=== PATIENT | male | born 1995 | race African-American/Black ===

== ENCOUNTER 2019-01-01 02:28 | Emergency (ER) | payer OTHER ==
[~2019-01-01] VITALS: Ht 182.9 cm; Wt 96.8 kg
[2019-01-01 04:02] LABS: INFLUENZA A AMPLIFICATION NEGATIVE (NEGATIVE); INFLUENZA B AMPLIFICATION NEGATIVE (NEGATIVE)
[2019-01-01] MEDS ORDERED: PRED20TA PO (04:09)
[2019-01-01] MEDS ORDERED: ZITHTAB PO (04:09)
[2019-01-01 04:26] VITALS: BP 123/89
--- NOTE | 2019-01-01 06:46 | REP ---
Clinical: Cough . Comparison: None . Technique: PA and lateral. Findings: The mediastinum and cardiac silhouette are normal. The lung herrera are clear and without acute consolidation, effusion, or pneumothorax. The skeletal structures are intact and normal. Impression: 1. No acute cardiopulmonary process. Electronically Signed by Yevgeniy Griffith MD 01/01/2019 06:38 A
== END 2019-01-01 04:34 | disposition home or self-care (01) ==
LOC: M ED 02:28
DX: J06.9 Acute upper respiratory infection, unspecified (principal); J20.9 Acute bronchitis, unspecified

== ENCOUNTER 2019-01-16 08:14 | Emergency (ER) | payer OTHER ==
[~2019-01-16] VITALS: Ht 182.9 cm; Wt 95.5 kg
[~2019-01-16 08:14] MED LIST: PRED20TA PO; ZITHTAB PO
--- NOTE | 2019-01-16 08:55 | REP ---
Left ring finger series: Four views. History: Deformity and pain. Findings: Four views of the left ring finger demonstrate a obliquely oriented somewhat comminuted fracture of the middle phalanx of the ring finger with slight displacement and override. There is associated soft-tissue swelling. No opaque foreign body. Impression: Comminuted obliquely oriented middle phalangeal fracture left ring finger. Electronically Signed by Joesph Hughes MD 01/16/2019 08:47 A
[2019-01-16 09:59] VITALS: BP 125/69
== END 2019-01-16 10:22 | disposition home or self-care (01) ==
LOC: M ED 08:14
DX: S62.625A Displaced fracture of middle phalanx of left ring finger, initial encounter for closed fracture (principal); W22.8XXA Striking against or struck by other objects, initial encounter; Y92.321 Football field as the place of occurrence of the external cause; Y93.61 Activity, american tackle football

== ENCOUNTER 2019-05-08 12:11 | Inpatient (IN) | payer OTHER ==
[~2019-05-08] VITALS: Ht 185.4 cm; Wt 94.5 kg
[2019-05-08 12:49] LABS: HEMATOCRIT 44.4 % (42.0-52.0); HEMOGLOBIN 15.2 g/dl (13.5-17.5); MEAN CORPUSCULAR HGB CONC 34.2 g/dl (32.0-36.5); MEAN CORPUSCULAR VOLUME 87.6 fl (80.0-96.0); PLATELET COUNT, AUTOMATED 296 10^3/uL (150-450); RED BLOOD COUNT 5.07 10^6/uL (4.30-6.10)
[2019-05-08 13:18] LABS: AMPHETAMINES LEVEL URINE NEGATIVE (NEGATIVE); BARBITURATES URINE NEGATIVE (NEGATIVE); BENZODIAZEPINES URINE NEGATIVE (NEGATIVE); CANNABINOIDS URINE POSITIVE (NEGATIVE); COCAINE METABOLITE URINE NEGATIVE (NEGATIVE); METHADONE URINE NEGATIVE (NEGATIVE); OPIATES URINE NEGATIVE (NEGATIVE); PHENCYCLIDINE URINE NEGATIVE (NEGATIVE)
[2019-05-08 13:24] LABS: ACETAMINOPHEN LEVEL < 2.0 UG/ML (10.0-30.0); ALT/SGPT 36 U/L (12-78); BILIRUBIN,DIRECT 0.3 MG/DL (0.0-0.2); BILIRUBIN,TOTAL 1.2 MG/DL (0.2-1.0); BLOOD UREA NITROGEN 8 MG/DL (7-18); CALCIUM LEVEL 9.2 MG/DL (8.5-10.1); CARBON DIOXIDE LEVEL 30 MEQ/L (21-32); CHLORIDE LEVEL 105 MEQ/L (98-107); CREATININE FOR GFR 1.27 MG/DL (0.70-1.30); ETHYL ALCOHOL (ETHANOL) < 0.003 % (0.000-0.010); GLOMERULAR FILTRATION RATE > 60.0 (>60); GLUCOSE, FASTING 91 MG/DL (70-100); POTASSIUM SERUM 3.7 MEQ/L (3.5-5.1); SALICYLATE LEVEL < 1.7 MG/DL (5.0-30.0); SODIUM LEVEL 140 MEQ/L (136-145); THYROID STIMULATING HORMONE 0.991 uIU/ML (0.358-3.740); TOTAL PROTEIN 7.7 GM/DL (6.4-8.2)
[2019-05-08] MEDS ORDERED: ACETAMINOPHEN TAB 650MG DOSE (2X325MG) PO PRN (14:00)
[2019-05-08] MEDS ORDERED: MAALOX 30 ML SUSP *UDC PO PRN (14:00)
[2019-05-08] MEDS ORDERED: MOM 30ML SUSPENSION UDC PO PRN (14:00)
[2019-05-08] MEDS ORDERED: traZODone 50 MG TAB PO PRN (14:00)
[2019-05-08 16:45] VITALS: BP 168/95
[2019-05-09 06:24] VITALS: BP 98/60
--- NOTE | 2019-05-09 10:44 | MHHPEPDOC ---
General Date Of Admission: May 08, 2019 Legal Status: 9.39 Chief Complaint "I was contemplating many ways on how to kill myself this morning." History of Present Illness HISTORY OF THE PRESENT ILLNESS: Patient is a 23 -year-old , AD, male, with a history of substance abuse who was brought to ED after he was seen at [place] [facility] as a walk-in endorse SI with multiple plans. Pt stated in ED "I was contemplating many ways on how to kill myself this morning." Per ED, pt reported multiple marital stressor with his which escalated the morning of his admission causing them to have an argument. Per pt to the ED, stated his apparently threaten pt on how his infidelity in their marriage would affect his career in the and how it would impact him financially. Pt stated in the ED that he panicked and felt "there was no point of living any longer." Pt stated in the Ed that he felt his was purposely trying to damage his career out of revenge for him cheating on her causing him to go to [facility] as a walk-in for help. Pt endorsed SI via multiple plans that included drunk driving, hanging himself, driving vehicle off the road, or shooting himself if he could get assess to a firearm per [facility] to ED. Once in the ED pt stated he felt beeter and would like to be d/c home to his and daughter. Psychiatric Review of Systems Depression (2 or more weeks): depressed mood, suicidal thoughts Dayana (4 or more days of): denies Psychosis: denies PTSD: denies Anxiety: situational anxiety, stressor related anxiety Anxiety/ 6 months or more of: irritability Past Psychiatric History Previous Psychiatric Diagnosis: cannabis use d/o Previous Psychiatric Admissions: denies Suicide Attempts: denies Psychiatric Follow-up: [facility] Psychiatric medications: denies Past Medical History Medical Problems surgery to hand in past Head Injury: No Seizures: No Hospitalizations: No Surgeries: Yes Family Medical/Psychiatric HX Medical Problems noncontributory Psychiatric Disorders: No Addiction: No Suicide Attemps/Completions: No Addiction History nicotine, other (utox pos cannabis) Social History Childhood: born and raised in [place], [place] in a 2 parent home with 4 siblings. Good childhood. Abuse/Trauma:denies Current Living Situation: lives [place] [address] with his and 8mo old daughter Education: high school grad and some college Employment: [employer] Social Support: family, Legal: denies Marital: with an 8mo only daughter Mental Status Examination General Appearance: well groomed, appears stated age, hospital scubs/clothing Build: average Demeanor: average Eye Contact: average Activity: average Speech: clear, spontaneous, normal volume, reg/rate,rhythm,volume Mood: euthymic Mood "better" Affect: full, appropriate, congruent Thought Process: logical/linear Thought Content (Delusions): none reported Thought Content (Other): none reported Thought Content (Aggressive): none reported Perception (Hallucinations): none reported Perception (Other): none reported Cognition (Impairment of): none reported Cognition(Intelligence Est.): average Oriented: Awake, Alert, Oriented times three Insight: good Judgment: Good Psychosis: Denies Diagnoses Adjustment d/o with depressed mood cannabis use d/o A-FIB/CHADSVASC A-FIB History Current/History of A-Fib/PAF?: No Assessment Pt seen during treatment team this morning stating he feels much better today and is hopeful to go home. Pt again discussed this marital stressors and his 's threats to him that caused him to panic and go to [facility] as a walk-in yesterday as had previous admitted to in the ED. Pt currently denies SI/HI, hallucinations, delusions. He does not feel like he needs to start any medication at this time as he finds his outpatient therapy at [facility] and [facility] beneficial. States he feels safe here. Initial Treatment Plan 1. Patient was admitted on a 9.39 status. 2. Complete history was obtained. 3. With patients permission, family will be contacted and database will be expanded. 4. Patients medication regimen will be reviewed and changed accordingly. 5. Patient will be provided with protected environment. 6. Patient will be treated with individual, group, and milieu therapies. 7. Patient will receive supportive psych-education. 8. Discharge planning will commence immediately. 9. Outpatient follow-up treatment will be strongly recommended. 10. The initial treatment plan will focus initially on: * Depression. * Risk for suicide. 11. monitor safety, d/c planning tomorrow ESTIMATED LENGTH OF STAY: 3-5 DAYS. TIME SPENT COUNSELING AND COORDINATING INITIAL CARE: 60 minutes. Vital Signs Vital Signs Date Time Temp Pulse Resp B/P (MAP) Pulse Ox O2 Delivery O2 Flow Rate FiO2 05/09/19 06:24 97.7 75 18 98/60 (73) 05/08/19 16:45 98 Room Air Laboratory Data 24H Labs Laboratory Tests 2 05/08/19 12:27: Nucleated Red Blood Cells % (auto) 0.0, Anion Gap 5L, Glomerular Filtration Rate > 60.0, Calcium Level 9.2, Total Bilirubin 1.2H, Direct Bilirubin 0.3H, Aspartate Amino Transf (AST/SGOT) 18, Alanine Aminotransferase (ALT/SGPT) 36, Alkaline Phosphatase 83, Total Protein 7.7, Albumin 4.0, Albumin/Globulin Ratio 1.08, Thyroid Stimulating Hormone (TSH) 0.991, Salicylates Level < 1.7L, Urine Opiates Screen NEGATIVE, Urine Methadone Screen NEGATIVE, Acetaminophen Level < 2.0L, Urine Barbiturates Screen NEGATIVE, Urine Phencyclidine Screen NEGATIVE, Urine Amphetamines Screen NEGATIVE, Urine Benzodiazepines Screen NEGATIVE, Urine Cocaine Metabolite Screen NEGATIVE, Urine Cannabinoids Screen POSITIVEH, Ethyl Alcohol Level < 0.003 CBC/BMP Laboratory Tests 05/08/19 12:27 Medications No Active Prescriptions or Reported Meds Allergies Coded Allergies: POLLEN (Verified Allergy, Unknown, 05/08/19) VERONICA VASQUEZ DO May 09, 2019 10:44 am
--- NOTE | 2019-05-09 11:59 | HPEPDOC ---
General Date of Admission May 08, 2019 at 13:53 Date of Service: May 09, 2019 Chief Complaint The patient is a 23-year-old male admitted with a reason for visit of Unspecified Disorder. Source: Patient Exam Limitations: No limitations Associated Symptoms: Denies Symptoms History of Present Illness Mr. Pritchard is a 23-year-old male who is admitted to the behavioral health unit secondary to suicidal ideation. Patient reported that he and his 's relationship has deteriorated, he reported to his therapist yesterday that he f elt suicidal. He denied a plan, any previous suicidal thoughts, any previous suicide attempts or history of depression. Patient reported that he started seeing a therapist so that he can discontinue marijuana use; he is happy with his current therapist and with her help he has not used marijuana since he started seeing them. No acute or chronic medical issues reported. Home Medications No Active Prescriptions or Reported Meds Allergies Coded Allergies: POLLEN (Verified Allergy, Unknown, 05/08/19) Past Medical History Medical History Unremarkable Surgical History ORIF, left ring finger Family History Significant Family History: No pertinent family hx Social History * Smoker: Denies Alcohol: Denies Drugs: marijuana (quit 2 weeks) A-FIB/CHADSVASC A-FIB History Current/History of A-Fib/PAF?: No Current PO Anticoag Therapy: No Review of Systems Constitutional: Denies: Chills, Fever, Night Sweats Eyes: Denies: Pain ENT: Denies: Head Aches Skin: Denies: Rash Pulmonary: Denies: Dyspnea, Cough Cardiovascular: Denies: Chest Pain, Palpitations, Orthopnea, Paroxysmal Noc. Dyspnea, Edema, Lt Headedness Gastrointestinal: Denies: Nausea, Vomiting, Abdominal Pain, Diarrhea, Constipation Genitourinary: Denies: Dysuria, Frequency, Incontinence, Retention Hematologic: Denies: Bruising Musculoskeletal: Denies: Neck Pain, Back Pain, Joint Pain, Muscle Pain, Spasms Neurological: Denies: Weakness, Numbness, Change in speech, Confusion Psych: Reports: Thoughts of Self Harm; Denies: Depression, Memory Issues, Thoughts of Harming Other Physical Examination General Exam: Positive: Alert, No Acute Distress Eye Exam: Positive: PERRLA, Conjunctiva & lids normal, EOMI; Negative: Sclera icteric ENT Exam: Positive: Atraumatic, Mucous membr. moist/pink, Pharynx Normal Neck Exam: Positive: Supple; Negative: thyromegaly Chest Exam: Positive: Clear to auscultation, Normal air movement Heart Exam: Positive: Rate Normal, Regular Rhythm, Normal S1, Normal S2; Negative: Murmurs, Rubs Telemetry: Positive: No significant arrhythmia Abdomen Exam: Positive: Normal bowel sounds, Soft; Negative: Tenderness Extremity Exam: Positive: Normal pulses; Negative: Clubbing, Cyanosis, Edema Skin Exam: Positive: Nl turgor and temperature Neuro Exam: Positive: Normal Gait, Normal Speech, Strength at 5/5 X4 ext, Cranial Nerves 3-12 NL Psych Exam: Positive: Mood NL Vital Signs Vital Signs Date Time Temp Pulse Resp B/P (MAP) Pulse Ox O2 Delivery O2 Flow Rate FiO2 05/09/19 06:24 97.7 75 18 98/60 (73) 05/08/19 16:45 98 Room Air Laboratory Data Labs 24H Laboratory Tests 2 05/08/19 12:27: Nucleated Red Blood Cells % (auto) 0.0, Anion Gap 5L, Glomerular Filtration Rate > 60.0, Calcium Level 9.2, Total Bilirubin 1.2H, Direct Bilirubin 0.3H, Aspartate Amino Transf (AST/SGOT) 18, Alanine Aminotransferase (ALT/SGPT) 36, Alkaline Phosphatase 83, Total Protein 7.7, Albumin 4.0, Albumin/Globulin Ratio 1.08, Thyroid Stimulating Hormone (TSH) 0.991, Salicylates Level < 1.7L, Urine Opiates Screen NEGATIVE, Urine Methadone Screen NEGATIVE, Acetaminophen Level < 2.0L, Urine Barbiturates Screen NEGATIVE, Urine Phencyclidine Screen NEGATIVE, Urine Amphetamines Screen NEGATIVE, Urine Benzodiazepines Screen NEGATIVE, Urine Cocaine Metabolite Screen NEGATIVE, Urine Cannabinoids Screen POSITIVEH, Ethyl Alcohol Level < 0.003 CBC/BMP Laboratory Tests 05/08/19 12:27 Assessment/Plan Mr. Pritchard is a 23-year-old male who is admitted to the behavioral health unit secondary to suicidal ideation. Past medical history is unremarkable. #1. Suicidal thoughts/ideation. Management per psychiatry Medicine will sign off at this time. Please feel free to reconsult as needed. Plan / VTE VTE Prophylaxis Ordered?: No YOVANNY RIOS PA-C May 09, 2019 11:59
[2019-05-09 16:02] VITALS: BP 132/70
[2019-05-10 06:28] VITALS: BP 146/77
--- NOTE | 2019-05-10 08:31 | MHDSPDOC ---
[facility] Discharge Summary Discharge Summary DATE OF ADMISSION: May 08, 2019 at 1:53 pm DATE OF DISCHARGE: May 10, 2019 DISCHARGE DIAGNOSES: Adjustment d/o with depressed mood cannabis use d/o REASON FOR ADMISSION: Patient is a 23 -year-old , AD, male, with a history of substance abuse who was brought to ED after he was seen at [place] [facility] as a walk-in endorse SI with multiple plans. Pt stated in ED "I was contemplating many ways on how to kill myself this morning." Per ED, pt reported multiple marital stressor with his which escalated the morning of his admission causing them to have an argument. Per pt to the ED, stated his apparently threaten pt on how his infidelity in their marriage would affect his career in the and how it would impact him financially. Pt stated in the ED that he panicked and felt "there was no point of living any longer." Pt stated in the Ed that he felt his was purposely trying to damage his ca reer out of revenge for him cheating on her causing him to go to [facility] as a walk- in for help. Pt endorsed SI via multiple plans that included drunk driving, hanging himself, driving vehicle off the road, or shooting himself if he could get assess to a firearm per [facility] to ED. Once in the ED pt stated he felt beeter and would like to be d/c home to his and daughter. Pt seen during treatment team this morning stating he feels much better today and is hopeful to go home. Pt again discussed this marital stressors and his 's threats to him that caused him to panic and go to [facility] as a walk-in yesterday as had previous admitted to in the ED. Pt currently denies SI/HI, hallucinations, delusions. He does not feel like he needs to start any medication at this time as he finds his outpatient therapy at [facility] and [facility] beneficial. States he feels safe here. CONSULTANTS INVOLVED: none TREATMENT AND PROGRESS ON THE UNIT : Pt was admitted to [facility] AT THE [facility], seen for psychiatric assessment and he chose not to start on any antidepressant medication preferring to go to outpatient therapy as treatment instead. He was provided trazodone 50mg qhs prn insomnia. He attended groups daily during his stay. His symptoms improved with treatment. On day of discharge he denied depression, anxiety, insomnia, SI/HI, hallucinations, delusions. He was discharged home after [facility] meeting with follow-up at [facility]. He felt safe for discharge. DISCHARGE ASSESSMENT: Pt seen and states that his mood is "good" and that he's looking forward to going home today with his [facility] to his and daughter. States that he and his talked on the phone and things are better between them now and that she's supportive of him. States he slept well last night. He is attending groups and finding them helpful. He denies depression, anxiety, insomnia, SI/HI, hallucinations, delusions. Pt feels safe to d/c home today with his [facility]. MENTAL STATUS EXAMINATION ON DISCHARGE: General Appearance: well groomed, appears stated age, hospital scrubs/clothing Build: average Demeanor: average Eye Contact: average Activity: average Speech: clear, spontaneous, normal volume, reg/rate,rhythm,volume Mood: euthymic Mood "good" Affect: full, appropriate, congruent Thought Process: logical/linear Thought Content (Delusions): none reported Thought Content (Other): none reported Thought Content (Aggressive): none reported Perception (Hallucinations): none reported Perception (Other): none reported Cognition (Impairment of): none reported Cognition(Intelligence Est.): average Oriented: Awake, Alert, Oriented times three Insight: good Judgment: Good Psychosis: Denies MEDICATIONS ON DISCHARGE: none PLAN/FOLLOWUP ARRANGEMENTS: D/c home with his [facility] with follow-up at [facility] and [facility]. The amount of time spent in the coordination of care for this patient was approximately 30 minutes. Vital Signs/I&Os Vital Signs Date Time Temp Pulse Resp B/P (MAP) Pulse Ox O2 Delivery O2 Flow Rate FiO2 05/10/19 06:28 98.1 77 16 146/77 (100) 05/08/19 16:45 98 Room Air Medications No Active Prescriptions or Reported Meds Allergies Coded Allergies: POLLEN (Verified Allergy, Unknown, 05/08/19) VERONICA VASQUEZ DO May 10, 2019 8:31 am
== END 2019-05-10 11:10 | disposition home or self-care (01) | DRG 881 ==
LOC: M ED 12:11 → M ED INP 13:53 → M PSY 15:17
PROVIDERS: ADMIT Psychiatry & Neurology Psychiatry; ATTEND Psychiatry & Neurology Psychiatry
DX: F43.21 Adjustment disorder with depressed mood (principal); R45.851 Suicidal ideations; F12.90 Cannabis use, unspecified, uncomplicated